=== PATIENT | female | born 1945 | race Caucasian/White ===

== ENCOUNTER 2020-05-14 08:07 | Day surgery (SDC) | payer MEDICARE, MEDICAID ==
[~2020-05-14 08:07] MED LIST: Sodium Chloride 0.9% 10 ML Syringe FLUSH PRN
[2020-05-14] MEDS: Sodium Chloride 0.9% 1,000 ML IV SCH (08:55)
[2020-05-14] MEDS ORDERED: Midazolam 1 MG/ML 2 ML SDV ONE (09:03)
[2020-05-14] MEDS ORDERED: Propofol 200 MG/20 ML SDV ONE (09:03)
--- NOTE | 2020-05-14 10:27 | PCM.PRNOTE ---
- Free Text/Narrative Note: PROCEDURE PERFORMED: Colonoscopy with polypectomy PRE-PROCEDURE DIAGNOSIS/INDICATION FOR PROCEDURE: +FHT; Iron deficiency anemia; Family history of colorectal cancer (mother in her 60s) CONSENT: Informed consent was obtained prior to the procedure after discussion with the patient as well as the POA-H/sister Carla (via telephone) of the risks (including pain, bleeding, infection, perforation, missed polyps, inability to completely remove polyps or complete procedure necessitating repeat colonoscopy, adverse reaction to anesthesia, cardiovascular event), benefits and alternatives and expected outcomes. The patient expressed understanding and wished to proceed. Verbal consent given and consent form signed. PROCEDURAL PAUSE: Completed SEDATION: Per anesthesia DESCRIPTION OF PROCEDURE: Patient was placed in the left lateral decubitus position. After adequate sedation and anesthetic was administered, a rectal exam was performed revealing external hemorrhoid tags. A lubricated Olympus Video Colonoscope was inserted into the rectum and air insufflation was performed. The colonoscope was advanced through the rectum, sigmoid, descending, transverse, and ascending colon without difficulties. The cecum was reached and the ileocecal valve as well as the appendiceal orifice were identified and pictorially documented. After adequate visualization of the cecum, the scope was withdrawn, viewing the colonic mucosa and retroflexion was performed in the rectum with the following findings noted: Ileocecal valve: Normal Cecum: Two small sessile polyps removed with cold forceps with subsequent complete polypoid tissue removal and hemostasis noted Ascending colon: Normal Hepatic flexure: Normal Transverse colon: Normal Splenic flexure: Normal Descending colon: Normal Sigmoid colon: Normal Rectum: Normal The scope was straightened, air suction performed, and the scope withdrawn without complication. Preparation adequacy [place] Bowel Score 7/9. Extensive water irrigation performed throughout withdrawal in order to adequately view. IMPRESSION: Colonoscopy performed revealing: - 2 small cecal polyps, pathology now pending - External hemorrhoid tags PLAN: Will contact the patient/facility when pathology results received with recommendation for repeat colonoscopy. Consider further work-up of iron deficiency anemia with possible upper endoscopy or small bowel workup.
== END 2020-05-14 11:40 ==
LOC: KA.SDS 08:07
PROVIDERS: ATTEND Family Medicine
DX: D12.0 Benign neoplasm of cecum (principal); D50.9 Iron deficiency anemia, unspecified; K64.4 Residual hemorrhoidal skin tags; E03.9 Hypothyroidism, unspecified; I10 Essential (primary) hypertension; E78.1 Pure hyperglyceridemia; F20.9 Schizophrenia, unspecified; E11.9 Type 2 diabetes mellitus without complications; Z79.899 Other long term (current) drug therapy; Z80.0 Family history of malignant neoplasm of digestive organs; Z79.84 Long term (current) use of oral hypoglycemic drugs
CPT/HCPCS: 00812; 82962; 88305; J2704; J7030